=== PATIENT | female | born 1995 | race African-American/Black ===

== ENCOUNTER 2021-07-07 11:56 | Emergency (ER) | payer OTHER, SELFPAY ==
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
[2021-07-07 12:07] VITALS: BP 96/68; PULSE 74; RESP 18; TEMP 36.3; O2SAT 100
== END 2021-07-07 12:35 | disposition home or self-care (01) ==
PROVIDERS: Emergency Provider Nurse Practitioner
DX: S39.012A Strain of muscle, fascia and tendon of lower back, initial encounter (principal); S16.1XXA Strain of muscle, fascia and tendon at neck level, initial encounter; V49.40XA Driver injured in collision with unspecified motor vehicles in traffic accident, initial encounter
CPT/HCPCS: 99203; G0463

== ENCOUNTER 2025-03-09 03:48 | Emergency (ER) | payer SELFPAY ==
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
--- NOTE | ~2025-03-09 | CT_ITS ---
EXAMINATION: CT brain wo con DATE: 03/09/2025 08:57 INDICATION: Injury TECHNIQUE: Computed tomography (CT) of the head was performed without intravenous contrast. The dose-length product was 605.33 mGy-cm. COMPARISON: None FINDINGS: No intracranial mass effect or hemorrhage. No large acute ischemic event. Physiologic calcifications developing in the basal ganglia regions. Calvarial structures appear intact. IMPRESSION: 1. No gross intracranial injury or process. Reviewed, dictated and finalized at location A. OLOGY DIRECTOR
--- NOTE | ~2025-03-09 | CT_ITS ---
EXAM/PROCEDURE: CT thoracic lumbar wo con HISTORY: trauma COMPARISON: None available. TECHNIQUE: CT of the thoracic and lumbar spine performed FINDINGS: THORACIC SPINE CT: No fracture lucency or traumatic malalignment. No gross prevertebral or paraspinal soft tissue swelling or hematoma seen. LUMBAR SPINE CT: No fracture lucency or traumatic malalignment. No gross prevertebral or paraspinal soft tissue swelling or hematoma seen. IMPRESSION: No fracture lucency or traumatic malalignment seen in the thoracic or lumbar spine. Reviewed, dictated and finalized at location A. LIAISON IMPRESSION: No fracture lucency or traumatic malalignment seen in the thoracic or lumbar sp ine.
--- OUTSIDE RECORDS SUMMARY | 2025-03-09 03:51 | XMS_ITS | Clinical Summary ---
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 Gender Identity Not on file Sexual Orientation Not on file Last Filed Vital Signs Vital Sign Reading Time Taken Comments Blood Pressure 126/82 01/15/2023 11:52 AM CDT Pulse 85 01/15/2023 11:52 AM CDT Temperature 36.9 C (98.5 F) 01/15/2023 11:52 AM CDT Respiratory Rate 16 01/15/2023 11:52 AM CDT Oxygen Saturation 99% 01/15/2023 11:52 AM CDT Inhaled Oxygen Concentration - - Weight 62.7 kg (138 lb 3.7 oz) 01/15/2023 9:12 A M CDT Height 154.9 cm (5' 1) 01/15/2023 9:12 AM CDT Body Mass Index 26.12 01/15/2023 9:12 AM CDT Plan of Treatment Health Maintenance Due Date Last Done Comments Cervical Cancer Screening 1995 Depression Screening 1995 Hepatitis C Screening 1995 Regular Well Visit/Exam 18-64 12/17/2013 Influenza Vaccine (#1) 2024 2, 03/22/2010, 02/17/2008 DTaP/Tdap/Td Vaccine (9 - Td or Tdap) 04/12/2030 04/12/2020, 01/25/2018, 12/03/2015, Additional history exists Hepatitis B Screening Completed 10/14/1998 , 11/04/1996, 02/19/1996 Varicella Vaccines Completed 04/20/2008, 11/07/1999 HPV Vaccines Completed 07/27/2008, 03/24, 02/17/2008 Pneumococcal vaccine <65 Aged Out No longer eligible based on patient's age to complete this topic Insurance [facility] Care Teams Technical Lead Relationship Specialty Start Date End Date Unknown, Notinfile PCP - General 01/15/23
--- OUTSIDE RECORDS SUMMARY | 2025-03-09 03:51 | XMS_ITS | Clinical Summary ---
Author Organization [facility] Address [address] [place] [address] Care Team Providers Care Wire Repairer Name Role Phone Tomy Puckett MD Primary Care Provider [phone] Source Comments [facility],non-owned Affiliates and Associated Physician Practices is amultiple site organization consisting of ambulatory clinics and hospital sitesin [place], [place], [place] and [place]. This disclosure is being madepursuant to the Care Everywhere program and may not contain all information available regarding this patient. Last updated 18.Retrieve Allergies Active Allergy Reactions Criticality Noted Date Comments Naproxen Psychiatric Medium 06/25/2017 Hallucinations Medications * This document contains information received from the source organization and may not represent a complete record from that organization. * Be aware that medications may not be up to date on this document. Alwaysverify current medications with the patient. methocarbamol (ROBAXIN) 750 MG tablet Take 1 (one) tablet by mouth every 8 hours 15 tablet Active Additional Information Patient not taking.Reported on 08/08/2021 Active Problems Patient Care Coordination No te Formatting of this note migh t be different from the original. 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 Problem Noted Date Diagnosed Date Pelvic pain in female 08/08/2021 Prediabetes 06/03/2020 Cystic fibrosis carrier 06/03/2020 Overview (12/31/2017): FOB aware to complete testing and has not yet done so Resolved Problems Problem Noted Date Diagnosed Date Resolved Date Encounter for induction of labor 06/24/2020 08/08/2021 Supervision of high-risk pre gnancy of young multigravida 06/03/2020 08/08/2021 Threatened labor 01/23/2018 03/18/2018 Positive GBS test 01/02/2018 03/18/2018 Threatened labor, third trimester 12/31/2017 12/31/2017 History of intrauterine grow th restriction in prior , currently 12/31/201702/22 Overview (12/31/2017): - G1 - 5lbs 12oz delivered at 37w6d - Growth US 11/29- EFW 1575g (19%), AC 27%, HC 9% - serial growth US: recheck at 38 weeks cardiac anomaly compli cating , antepartum 12/31/2017 03/18/2018 Overview (12/31/2017): - echo demonstrated normal cardiac anatomy, mild color flow turbulence and increased doppler in transverse arch - Obtain echo at 1-2 days of life Poor growth, affecting management of mother, antepartum condition or complication 08/08/2021 Oligohydramnios, antepartum 08/08/2021 Immunizations Immunization Administration Dates Next Due MMR 06/25/2020(Deferred: See Comment s - pt immune) TDAP (7yrs+) 06/25/2020(Deferred: See Comments - pt received 04/11),04/12/2020,01/25/2018 Family History Medical History Relation Name Comments Diabetes - Type 2 Maternal Aunt Lung Disease Maternal Aunt Brain Tumor Mother Cancer - Lung Mother Renal Disease Mother Relation Name Status Comments Maternal Aunt Mother Social History Tobacco Use Types Packs/Day Years Used Date Smoking Tobacco: Never Smokeless Tobacco: Never Alcohol Use Standard Drinks/Week Comments No 0 (1 standard drink = 0.6 oz pur e alcohol) Comments No Sex and Gender Information Value Date Recorded Sex Assigned at Not on file Legal 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 Gender Identity Not on file Sexual Orientation Not on file Last Filed Vital Signs Vital Sign Reading Time Taken Comments Blood Pressure 106/70 08/08/2021 3:27 PM CDT Pulse 91 08/08/2021 3:27 PM CDT Temperature 36.7 C (98 F) 07/03/2021 9:22 PM CDT Respiratory Rate 16 07/03/2021 9:22 PM CDT Oxygen Saturation 98% 07/03/2021 9:22 PM CDT Inhaled Oxygen Concentration - - Weight 71.6 kg (157 lb 12.8 oz) 08/08/2021 3:27 PM CDT Height 154.9 cm (5' 1) 07/03/2021 4:32 PM CDT Body Mass Index 29.82 07/03/2021 4:32 PM CDT Plan of Treatment Health Maintenance Due Date Last Done Comments HEPATITIS B VACCINE (1 of 3 - 19+ 3-dose series) 12/17/2014 DIABETES RETINOPATHY SCREENING 12/03/2018 DIABETES-FOOT EXAM WITH MONOFILAMENT 12/03/2018 DIABETES-HGB A1C 12/03/2018 10/08/2017, 06/25/2017 DIABETES-SERUM CREATININE 06/27/20212020, 06/26/2020, 06/25/2020, Additional history exists HPV VACCINE (1 - 3-dose SCDM series) 12/17/2022 DEPRESSION SCREENING 04/23/2024 DIABETES - URINE PROTEIN SCREENING 04/23/2024 06/24/2020 PAP SMEAR 08/08/2024 08/08/2021, 06/25/2017 COVID-19 VACCINE ( - 2024- season) 2024 INFLUENZA VACCINE (#1) 2024 DTAP/TDAP/TD VACCINES (3 - Td or Tdap) 04/12/2030 04/12/2020, 01/25/2018 ZOSTER VACCINE (1 of 2) 12/17/2045 HEPATITIS C SCREENING Completed 10/25/2018, 018 HIV SCREENING Completed 11/25/2019, 08/2018, 03/18/2018, Additional history exists HIB VACCINE Aged Out No longer eligi ble based on patient's age to complete this topic MENINGOCOCCAL (Group B) VACCINE SHARED DECISION-MAKING Aged Out No longer eligible based on patient's age to complete this topic MENINGOCOCCAL GROUPS A/C/Y/W VACCINE Aged Out No longer eligible based on patient's age to complete this topic PNEUMOCOCCAL VACCINE Aged Out No long er eligible based on patient's age to complete this topic Procedures Procedure Name Priority Date/Time Associated Diagnosis Comments PAP IG LB RFLX HPV APTIMA ASCU Routine 08/08/2021 4:04 PM CDT Well woman exam with routine gynecological exam COMPREHENSIVE METABOLIC PANEL AM Draw 06/27/2020 8:11 AM CRIMINAL JUSTICE SOCIAL WORKER PROTEIN CREATININE RATIO URINE RANDOM PNL STAT 06/24/2020 6:27 PM CRIMINAL JUSTICE SOCIAL WORKER Elevated blood pressure reading without diagnosis of hypertension HIV-1 HIV-2 ANTIBODY W/ REFLX CONFIRM Routine 11/25/2019 HEPATITIS SCREEN ACUTE Routine 10/25/2018 2:31 PM CDT Routine screening for STI (sexually transmitted infection) HEMOGLOBIN A1C Routine 10/08/2017 8:53 AM CDT Encounter for supervision of other normal in second trimester from Last 3 Months or Most Recently Relevant to Health Maintenance Results * PAP IG LB RFLX HPV APTIMA ASCU (08/08/2021 4:04 PM CDT) Diagnosis Comment 08/17/2021 5:08 PM CDT [facility] ([facility]) Comment: UNSATISFACTORY FOR EVALUATION. SPECIMEN REPROCESSED FOR INTERPRETATION USING GLACIAL ACETIC ACID (GAA). Recommendation Comment 08/17/2021 5:08 PM CDT [facility] ([facility]) Comment:Suggest follow up as clinically appropriate. Specimen Adequacy Comment 022 5:08 PM CDT [facility] ([facility]) Comment: Specimen processed and examined but unsatisfactory for evaluation of epithelial abnormality because of obscuring blood. Performed by Comment 08/17/2021 5:08 PM CDT [facility] ([facility]) Comment:Alondra Story ytotechnologist ([facility]) QC Reviewed by Comment 08/17/2021 5:08 PM CDT [facility] ([facility]) Comment:Mayda Walton Placement Interviewer ([facility]) Comment . 08/17/2021 5:08 PM CDT [facility] ([facility]) Note Comment 08/17/2021 5:08 PM CDT [facility] ([facility]) Comment: The Pap smear is a screening test designed to aid in the detection of premalignant and malignant conditions of the uterine cervix. It is not a diagnostic procedure and should not be used as the sole means of detecting cervical cancer. Both false-positive and false-negative reports do occur. IGLBP CPT Code Automation Comment 08/17/2021 5:08 PM CDT [facility] ([facility]) Comment: This liquid based ThinPrep(R) pap test was screened with the use of an image guided system. Note Comment 08/17/2021 5:08 PM CDT [facility] ([facility]) Comment: The HPV DNA reflex criteria were not met with this specimen result therefore, no HPV testing was performed. Pathology/Cytolo gy PART OF UTERINE CERVIX / Unknown Collection / Unknown 08/08/2021 4:04 PM CDT 08/08/2021 4:12 PM CDT Narrative [facility] ([facility]) - 08/17/2021 5:08 PM CDT Performed at: [address] [place] [id number] Lobbyist: Analia Marroquin MD, Phone: [phone] Specimen Comment: No. of containers..01 ThinPrep Vial us Nino Rey MD LAB - PATHOLOGY/CYTOLOGY ORDERA BLES Final Result [facility] ([facility]) [address] [place] [address] * (ABNORMAL) COMPREHENSIVE METABOLIC PANEL (06/27/2020 8:11 AM CRIMINAL JUSTICE SOCIAL WORKER) Glucose 70 70 - 105 mg/dL 06/27/2020 9:00 AM [facility] Sodium 138 136 - 145 mmol/L 06/27/2020 9:00 AM [facility] Potassium 4.5 3.5 - 5.1 mmol/L 06/27/2020 9:00 AM [facility] Chloride 107 98 - 107 mmol/L 06/27/2020 9:00 AM [facility] CO2 22(L) 23 - 31 mmol/L 06/27/2020 9:00 AM [facility] Calcium 8.0(L) 8.4 - 10.4 mg/dL 06/27/2020 9:00 AM CRIMINAL JUSTICE SOCIAL WORKER [facility] Anion Gap 9 8 - 18 mmol/L 06/27/2020 9:00 AM [facility] Comment:Attention clinician: Reference Range change. BUN 6(L) 7 - 18.7 mg/dL 06/27/2020 9:00 AM [facility] Creatinine 0.65 0.57 - 1.11 mg/dL 06/27/2020 9:00 AM [facility] Alkaline Phosphatase 160(H) 40 - 150 U/L 06/27/2020 9:00 AM [facility] Comment:Attention clinician: Reference Range change. ALT 109(H) 0 - 61 U/L 06/27/2020 9:00 AM [facility] AST 59(H) 5 - 34 U/L 06/27/2020 9:00 AM [facility] Protein Total 6.1(L) 6.4 - 8.3 gm/dL 06/27/2020 9:00 AM [facility] Albumin 2.9(L) 3.5 - 5.2 gm/dL 06/27/2020 9:00 AM [facility] Bilirubin Total 0.3 0.2 - 1.2 mg/dL 06/27/2020 9:00 AM [facility] Comment:Attention clinician: Reference Range change. eGFR by MDRD >60 >60 mL/min/1.7 3m2 06/27/2020 9:00 AM [facility] eGFR by MDRD >60 >60 mL/min/1.7 3m2 06/27/2020 9:00 AM [facility] Blood BLOOD SPECIMEN / Unknown Lab Venipuncture / Unknown 06/27/2020 8:11 AM [employer]ICE SOCIAL WORKER 06/27/2020 8:24 AM CRIMINAL JUSTICE SOCIAL WORKER us Faheem Gamboa MD LAB - CHEMISTRY ORDERA BLES Final Result [facility] [address] [place] [address] * (ABNORMAL) PROTEIN CREATININE RATIO URINE RANDOM PNL (06/24/2020 6:27 PM CRIMINAL JUSTICE SOCIAL WORKER) Protein Urine 142.4(H) <11.9 mg/dL 06/24/2020 6:51 PM CRIMINAL JUSTICE SOCIAL WORKER [facility] Creatinine Urine 38.74 mg/dL 06/24/2020 6:51 PM CRIMINAL JUSTICE SOCIAL WORKER [facility] Protein/Creatin ine Ratio Urine 3.68 06/24/2020 6:51 PM CRIMINAL JUSTICE SOCIAL WORKER [facility] Urine URINE SPECIMEN OBTAINED BY CLEAN CATCH PROCEDURE / Unknown Collection / Unknown 06/24/2020 6:27 PM CRIMINAL JUSTICE SOCIAL WORKER 06/24/2020 6:35 PM CRIMINAL JUSTICE SOCIAL WORKER Faheem Gamboa MD LAB - URINE CHEMISTRY ORDERABLES Final Result [facility] [address] [place] [address] * HIV-1 HIV-2 ANTIBODY W/ REFLX CONFIRM (11/25/2019) HIV-1/HIV-2 Non Reactive Blood BLOOD SPECIMEN / Unknown Jayro Garcia MD LAB - SEROLOGY ORDERABLES Final Result * HEPATITIS SCREEN ACUTE (10/25/2018 2:31 PM CDT) HAV Antibody IgM Non Reactive Non Reactive 10/25/2018 3:44 PM CDT [facility] HBsAg Non Reactive Non Reactive 10/25/2018 3:44 PM CDT [facility] HBc Antibody IgM Non Reactive Non Reactive 10/25/2018 3:44 PM CDT [facility] HCV Antibody Screen Non Reactive Non Reactive 10/25/2018 3:44 PM CDT [facility] HCV S/C Ratio 0.06 0.00 - 0.79 10/25/2018 3:44 PM CDT [facility] Comment: Tghiml-yo-kgahac ratio (S/CO) <0.80: Non Reactive Blood BLOOD SPECIMEN / Unknown Venipuncture / Unknown 10/25/2018 2:31 PM CDT 10/25/2018 2:40 PM CDT Narrative [facility] - 10/25/2018 3:44 PM CDT Non Reactive - Antibodies to Hepatitis C virus (HCV) were not detected, result does not exclude early acute HCV infection. us Marina Esteban MD LAB - CHEMISTRY ORDERABLES F inal Result [facility] [address] [place] [address] * HEMOGLOBIN A1C (10/08/2017 8:53 AM CDT) Hemoglobin A1c 5.6 4.2 - 6.3 % 10/08/2017 9:30 AM CDT [facility] Estimated Average Glucose 114 mg/dL 10/08/2017 9:30 AM CDT [facility] Whole Blood BLOOD SPECIMEN / Unknown Venipuncture / Unknown 10/08/2017 8:53 AM CDT 10/08/2017 8:57 AM CDT Rosa Avila CONSTRUCTION PERSON-COST ANALYST LAB - CHEMISTRY ORDERAB LES Final Result Performing Organization Address [facility] Co de Phone Number [facility] [address] [place] [address] from Last 3 Months or Most Recently Relevant to Health Maintenance Insurance [facility] [employer] Liability [facility] Advance Directives * Full Code (Latest Code Status on File) Date Activated Date Inactivated Comments 06/24/2020 11:25 AM 06/27/2020 12:12 PM * Full Code Date Activated Date Inactivated Comments 01/23/2018 7:43 PM 01/25/2018 5:41 PM Care Teams Wire Repairer Relationship Specialty Start Date End Date Tomy Puckett MD [address] [place] [id number] PCP - General 07/06/20
[2025-03-09 04:03] VITALS: BP 113/60; PULSE 67; RESP 16; TEMP 36.4; O2SAT 100
--- NOTE | 2025-03-09 05:59 | PC.NURSE ---
Patient ambulates to the desk and requested pain medication and wait time. This RN went to speak with ERP, no new orders at this time. Patient informed that wait times are not able to be given but everyone is working as quick as they can. Patient then ambulated back to the waiting room.
--- NOTE | 2025-03-09 06:04 | PC.NURSE ---
Patient ambulates to desk waving her c-collar that was placed by this RN. Patient ambulates on her phone yelling I am in pain!! I have been waiting hours and haven't seen a doctor, and been sitting out here and in pain! This RN informed patient that the ERP is aware of her and that she is in pain, that pain medication was requested but no new orders were given. Patient continues to yell and raise her voice at this RN. Patient informed that this RN can give pain medications once they are ordered, but cannot do so until an order is placed or given. Patient then turns and ambulates back to the waiting room holding her c-collar talking on her phone.
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
[2025-03-09] MEDS: CYCLOBENZAPRINE HCL 10 MG TABLET PO (08:29)
[2025-03-09] MEDS: ONDANSETRON HCL ODT 4 MG TABLET PO (08:29)
[2025-03-09] MEDS: ACETAMINOPHEN 500 MG TABLET 1000 MG PO (08:29)
[2025-03-09 08:34] LABS: BEDSIDEPREGUCG Negative (Negative)
[2025-03-09 10:43] VITALS: BP 136/95; PULSE 86; RESP 16; O2SAT 100
== END 2025-03-09 10:27 | disposition home or self-care (01) ==
PROVIDERS: Emergency Provider Emergency Medicine
DX: S19.9XXA Unspecified injury of neck, initial encounter (principal); M54.9 Dorsalgia, unspecified; V49.50XA Passenger injured in collision with unspecified motor vehicles in traffic accident, initial encounter
CPT/HCPCS: 70450; 72125; 72128; 72131; 81025; 99284; A9270